=== PATIENT | female | born 1965 | race Caucasian/White ===

== ENCOUNTER → 2020-08-18 | Outpatient (CLI) | payer BC ==
[~2020-08-18] MED LIST: ANTIVERT 25MG25 MG PO; COLACE 100100 MG/CAP PO; LIDODERM 5% PATC1 EA TP; MOTRIN 600600 MG/TAB PO; NATURAL IRON65 MG PO; ROBAXIN 50500 MG/TAB PO; TYLENOL 325MG325 MG PO
== END ==
LOC: MC.RAD 08:55
DX: R92.0 Mammographic microcalcification found on diagnostic imaging of breast (principal)

== ENCOUNTER 2020-09-06 00:26 | Emergency (ER) | payer BC ==
[~2020-09-06] VITALS: Ht 170.2 cm; Wt 95.5 kg
[2020-09-06 00:47] VITALS: TEMP 98
[2020-09-06 00:52] LABS: COLLECTION METHOD CLEAN CATCH
[2020-09-06] MEDS ORDERED: COLACE 100100 MG/CAP PO (00:56)
[2020-09-06] MEDS ORDERED: NATURAL IRON65 MG PO (00:56)
[2020-09-06] MEDS ORDERED: ANTIVERT 25MG25 MG PO (00:56)
[2020-09-06 00:59] LABS: PH 6 (5-8); SQUAMOUS EPITHELIAL None Seen /hpf; URINE APPEARANCE Clear; URINE BACTERIA Rare /hpf; URINE BILIRUBIN Negative (NEGATIVE); URINE BLOOD 1+ (NEGATIVE); URINE COLOR Colorless; URINE GLUCOSE Negative (NEGATIVE); URINE KETONE Negative (NEGATIVE); URINE LEUKOCYTE ESTERASE Negative (NEGATIVE); URINE NITRATE Negative (NEGATIVE); URINE PROTEIN(semi-quant) Negative (NEGATIVE); URINE RBC None Seen /hpf; URINE UROBILINOGEN Negative (NEGATIVE)
[2020-09-06] MEDS ORDERED: ROBAXIN 50500 MG/TAB PO (01:03)
[2020-09-06] MEDS ORDERED: TYLENOL 325MG325 MG PO (01:03)
[2020-09-06] MEDS ORDERED: MOTRIN 600600 MG/TAB PO (01:03)
[2020-09-06] MEDS ORDERED: LIDODERM 5% PATC1 EA TP (04:09)
[2020-09-06 04:16] VITALS: BP 137/84; PULSE 81
== END 2020-09-06 04:16 | disposition home or self-care (01) ==
LOC: COL.ER 00:26
PROVIDERS: Nurse Practitioner
DX: S39.012A Strain of muscle, fascia and tendon of lower back, initial encounter (principal); X58.XXXA Exposure to other specified factors, initial encounter; Y93.01 Activity, walking, marching and hiking

== ENCOUNTER 2022-03-03 07:53 | Day surgery (SDC) | payer BC ==
[~2022-03-03] VITALS: Ht 170.2 cm; Wt 110.2 kg
[2022-03-03 08:33] VITALS: BP 134/82; PULSE 72; TEMP 97.5
[2022-03-03 09:30] VITALS: BP 108/71; PULSE 71; TEMP 97.1
[2022-03-03 09:45] VITALS: BP 127/80; PULSE 66
[2022-03-03 10:00] VITALS: BP 112/76; PULSE 65
[2022-03-03 10:15] VITALS: BP 120/68; PULSE 58
--- NOTE | 2022-03-03 10:35 | NUR ---
0930-PT TO BAY 3 PER CART FROM PROCEDURE ROOM. REPORT RECEIVED. VS OBTAINED. CALL LIGHT WITHIN REACH. 0935-PT TOLERATING WATER AND PUDDING. 1000-DR ROBLERO IN ROOM DISCUSSING FINDINGS WITH PT. 1020-IV DC'D AT THIS TIME. 1025-DISCHARGE EDUCATION COMPLETED WITH PT AND HER MOTHER. VERBALIZED UNDERSTANDING OF HOME AND FOLLOW UP CARE. ALL QUESTIONS ANSWERED. DISCHARGE PAPERWORK GIVEN TO PT. 1035-PT OFF UNIT PER WHEELCHAIR. PT DISCHARGED TO HOME WITH HER MOTHER PER PERSONAL VEHICLE.
== END 2022-03-03 10:35 | disposition home or self-care (01) ==
LOC: SDCO 07:53
DX: K29.50 Unspecified chronic gastritis without bleeding (principal); K31.7 Polyp of stomach and duodenum; D50.9 Iron deficiency anemia, unspecified; K57.30 Diverticulosis of large intestine without perforation or abscess without bleeding; Z87.891 Personal history of nicotine dependence
CPT/HCPCS: J2704; J7120